=== PATIENT | male | born 1935 | race Caucasian/White ===

== ENCOUNTER 2023-01-07 13:30 | Outpatient (RCR) | payer MEDICARE, BC | END 2023-01-09 | disposition home or self-care (01) | LOC: WSPT | DX: R26.89 Other abnormalities of gait and mobility (principal) ==

== ENCOUNTER 2023-02-04 15:00 | Outpatient (RCR) | payer MEDICARE, BC | END 2023-02-08 | disposition home or self-care (01) | LOC: WSPT | DX: R26.89 Other abnormalities of gait and mobility (principal); R53.81 Other malaise; R29.6 Repeated falls ==